=== PATIENT | male | born 2000 | race American Indian/Alaskan Native ===

== ENCOUNTER 2019-08-04 19:42 | Emergency (ER) | payer SELFPAY ==
[2019-08-04 19:47] VITALS: BP 126/75
--- NOTE | 2019-08-04 19:52 | Emergency Department Report ---
Chief Complaint: Urogenital-Male Stated Complaint: STD - HPI History of Present Illness: This is a 19 y.o. M. that presents to the ER with dysuria and penile discharge for 2 days. Admits to risk of STD exposure. Denies pelvic pain, back pain, testicular enlargement/pain, urinary frequency, or urgency. - Exam Vital Signs: Vital Signs 08/04/19 19:46 Temperature 98.2 F Pulse Rate 73 Respiratory 16 Rate Blood Pressure 126/75 O2 Sat by Pulse 100 Oximetry MSE screening note: Focused history and physical exam performed. Due to findings the following was ordered: ED Medical Decision Making - Medical Decision Making This is a 19-year-old male nontoxic, well in appearance with no signs of distress presents to the ED for STD check. Patient stated that he think he may have an STD. Denies testicular pain, or swelling, any urinary symptoms. Referrals given to follow up with PCP or health department. Patient discharged home stable. ED Disposition for MSE Clinical Impression: Feared complaint without diagnosis Disposition: DC-01 TO HOME OR SELFCARE Is pt being admited?: No Condition: Stable Instructions: Sexually Transmitted Diseases (ED), Safe Sex (ED) Additional Instructions: Follow up with a PCP or health department for further evaluation. I have provided a list of places for you to follow up with. Referrals: [facility] [Outside] - 3-5 Days [facility] [Outside] - 3-5 Days [facility] [Outside] - 3-5 Days Time of Disposition: 20:25
== END 2019-08-04 21:45 | disposition home or self-care (01) ==
LOC: ED 19:42
DX: R30.0 Dysuria (principal); R36.9 Urethral discharge, unspecified; Z11.3 Encounter for screening for infections with a predominantly sexual mode of transmission